=== PATIENT | male | born 1990 | race Caucasian/White ===

== ENCOUNTER 2023-10-31 21:15 | Emergency (ER) | payer BC ==
[~2023-10-31 21:15] MED LIST: Iopamidol 300 61% 100 ML VIAL FS ONE
[2023-10-31] MEDS ORDERED: Ondansetron PF 4 MG/2 ML Vial ONE (22:00)
[2023-10-31] MEDS ORDERED: Morphine 4 MG/ML VIAL ONE (22:00)
[2023-10-31 22:18] LABS: #Basophils 0.04 10x3/uL (0.0-0.2); #Eosinphils 0.03 10x3/uL (0.0-0.5); #Monocytes 0.64 10x3/uL (0.0-1.1); #Neutrophils 5.78 10x3/uL (1.5-8.4); %Basophils 0.4 % (0.0-2.0); %Eosinophils 0.3 % (0.0-6.0); %Lymphocytes 28.3 % (18.0-47.0); %Neutrophils 63.8 % (40.0-75.0); ALT (SGPT) 19 U/L (8-55); AST (SGOT) 19 U/L (5-34); Albumin 4.6 g/dL (3.5-5.0); Alkaline Phosphatase 50 U/L (40-110); Anion Gap 25 mmol/L (10-20); BUN (Urea Nitrogen) 16 mg/dL (8.9-20.6); Calc. Creatinine Clearance 0 mL/min (70-130); Calcium 9.9 mg/dL (7.8-10.44); Carbon Dioxide 14 mmol/L (22-29); Chloride 100 mmol/L (98-107); Estimated GFR 63; Globulin 2.9 g/dL (2.4-3.5); Glucose 191 mg/dL (70-105); Hemoglobin 13.9 g/dL (13.5-17.5); Lipase 28 U/L (8-78); Magnesium 1.7 mg/dL (1.6-2.6); Mean Corpuscular HGB CONC 33.9 g/dL (32.0-36.0); Mean Corpuscular Volume 85.6 fL (81.2-95.1); Mean Platelet Volume 11.6 fL (7.4-10.4); Platelet Count 324 10x3/uL (150-450); Potassium 3.2 mmol/L (3.5-5.1); Protein, Total 7.5 g/dL (6.0-8.3); RBC Distribution Width 11.5 % (11.5-14.5); Red Blood Cell (RBC) Count 4.79 10x6/uL (4.32-5.72); Sodium 136 mmol/L (136-145); White Blood Cell (WBC) Count 9.1 10x3/uL (3.5-10.5)
[2023-10-31 22:24] LABS: Troponin I Less than 0.010 ng/mL (< 0.028)
[2023-10-31] MEDS ORDERED: Potassium Chloride 20 MEQ TAB ONE (22:38)
[2023-10-31] MEDS ORDERED: Haloperidol Lactate 5 MG/ML VIAL ONE (22:44)
[2023-10-31] MEDS ORDERED: Potassium Bicarbonate/Cit Ac 20 MEQ TAB ONE (23:47)
== END 2023-10-31 23:56 | disposition home or self-care (01) ==
LOC: CSHERS 21:15
DX: R10.32 Left lower quadrant pain (principal); R10.813 Right lower quadrant abdominal tenderness; R10.814 Left lower quadrant abdominal tenderness
CPT/HCPCS: 71045; 74177; 80053; 83690; 83735; 84484; 85025; 93005; 96372; 96374; 96375; J1630; J2272; J2405; Q9967